=== PATIENT | male | born 1990 | race Caucasian/White ===

== ENCOUNTER 2017-06-17 18:00 | Emergency (ER) | payer SELFPAY ==
[2017-06-17] MEDS: morphine 4 MG/ML VIAL IM (18:38)
[2017-06-17] MEDS: ONDANSETRON (ODT) 4 MG TAB ODT (18:38)
[2017-06-17] MEDS ORDERED: LORAZEPAM 2 MG INJ (21:17)
[2017-06-17] MEDS: ETOMIDATE 20 MG INJ IV (21:19)
[2017-06-17] MEDS: ONDANSETRON 4 MG INJ IV (21:19)
[2017-06-17] MEDS: LORAZEPAM 2 MG INJ IV (21:20)
== END 2017-06-17 23:11 | disposition home or self-care (01) ==
LOC: FTE 18:00 → E/R 23:11
DX: S43.014A Anterior dislocation of right humerus, initial encounter (principal); X58.XXXA Exposure to other specified factors, initial encounter; Y92.9 Unspecified place or not applicable
CPT/HCPCS: 23650; 73030-RT; 96372; 96374; 99285-25